=== PATIENT | male | born 1935 | race Caucasian/White ===

== ENCOUNTER 2016-12-10 09:46 | Outpatient (CLI) ==
--- NOTE | 2016-12-10 10:37 | CT ---
EXAM: CT BRAIN HISTORY: Dizziness, hypertension TECHNIQUE: CT brain without intravenous contrast. 5-mm axial sections with Reformations. COMPARISON: None FINDINGS: There is mild generalized atrophy. Moderate periventricular and deep white matter low attenuation i s suggestive of relatively severe chronic microvascular ischemic change. A few nodular similar low attenuation foci are seen also in the deep supratentorial white matter bilaterally which may represe nt further asymmetric extension of the chronic microvascular disease. With no comparisons, it would be difficult to exclude small focal subacute infarctions or foci of edema from other pathology incl uding metastatic disease although this is less likely. There is no intracranial hemorrhage, acute v entriculomegaly, noticeable mass effect or subdural fluid collection. Basal cisterns are patent. V isualized paranasal sinuses are clear. Mastoid air cells are aerated. Cranium is intact. IMPRESSION: No definite acute intracranial process. Complex deep white matter findings as described above. Cor relate clinically. If indicated, correlation with MRI can be made.
--- NOTE | 2016-12-10 11:42 | US ---
EXAM: Bilateral carotid artery Doppler History: Dizziness and hypertension. Technique: Multiple sonographic images through the bilateral internal carotid arteries were obtaine d. Color duplex Doppler was used to interrogate vascular flow. Findings: The right ICA peak systolic velocity is within normal limits measuring 0.8 meters per second. The r ight ICA/cca PSV ratio is normal at 1.6. The right vertebral artery is patent and demonstrates ante grade flow. Mild to moderate plaque buildup seen within the right internal carotid artery. The left ICA peak systolic velocity is within normal limits measuring 1.1 meters per second. The le ft ICA/cca PSV ratio is upper limits of normal at 2.0. The left vertebral artery is patent and demo nstrates antegrade flow. Mild to moderate plaque buildup seen within the left internal carotid ghanshyam ry Impression: No significant hemodynamic stenosis of the bilateral internal carotid arteries.
== END 2016-12-10 09:47 | disposition home or self-care (01) ==
LOC: RAD 09:46
PROVIDERS: ATTEND Emergency Medicine
DX: R42 Dizziness and giddiness (principal); I10 Essential (primary) hypertension

== ENCOUNTER 2017-04-14 14:39 | Inpatient (IN) ==
[2017-04-14] MEDS ORDERED: NITROSTAT SL PRN (15:10)
[2017-04-14] MEDS ORDERED: ATROPINE SULFATE PFS IVP PRN (15:10)
[2017-04-14] MEDS ORDERED: MORPHINE 4 MG/ML SYRINGE IVP PRN (15:10)
[2017-04-14] MEDS ORDERED: VISTARIL INJ IM PRN (15:10)
[2017-04-14] MEDS ORDERED: DECADRON 4 MG/ML SDV IM STA (15:17)
[2017-04-14] MEDS ORDERED: TYLENOL PO STA (15:18)
[2017-04-14] MEDS ORDERED: VANCOMYCIN 1 GM in SODIUM CHLORIDE 250 ML IV SCH (15:30)
[2017-04-14 16:03] LABS: BASOPHILS # (AUTO) 0.1 K/uL (0-0.2); BASOPHILS % (AUTO) 0.3 % (0.0-3.0); HEMATOCRIT 45.1 % (42.0-52.0); HEMOGLOBIN 15.6 g/dl (14.0-18.0); IMMATURE GRANULOCYTE % (AUTO) 0.6 % (0.0-5.0); LYMPHOCYTES # (AUTO) 0.9 K/uL (0.60-3.4); LYMPHOCYTES % (AUTO) 5.1 (10.0-50.0); MEAN CORPUSCULAR HEMOGLOBIN 32.8 pg (27.0-31.0); MEAN CORPUSCULAR HGB CONC 34.6 (31.8-35.4); MEAN CORPUSCULAR VOLUME 94.7 fl (80.0-94.0); MONOCYTES # (AUTO) 1.2 K/uL (0.4-2.0); MONOCYTES % (AUTO) 6.8 (0-10); NEUTROPHILS # (AUTO) 14.8 K/ul (2.0-6.9); NEUTROPHILS % (AUTO) 87.2; PLATELET COUNT 207 10^3/uL (140-440); RED BLOOD COUNT 4.76 10^6/ul (4.70-6.10); WHITE BLOOD COUNT 16.96 K/ul (4.2-10.2)
[2017-04-14] MEDS: DEXTROSE 5%-1/2NS IV SOLUTION 1,000 ML IV SCH (16:07)
[2017-04-14] MEDS: ROCEPHIN 1 GM in SODIUM CHLORIDE 50 ML IV SCH (16:08)
--- NOTE | 2017-04-14 16:31 | DI ---
EXAM: Chest one view, frontal view only. HISTORY: Cough, chest congestion. COMPARISON: 09/17/2014. FINDINGS: The heart size is normal. Aortic atherosclerotic calcifications are present. There is n o pulmonary vascular congestion. Calcified granulomatous changes noted. The lungs are clear. No p leural effusion or pneumothorax is seen. No acute osseous abnormality is identified. Since the victor hugo or study, there has been no significant interval change. IMPRESSION: No acute cardiopulmonary process.
[2017-04-14 17:04] LABS: ALBUMIN 3.7 g/dL (3.4-5.0); ALBUMIN/GLOBULIN RATIO 1.06; ANION GAP 15.3; BILIRUBIN,TOTAL 0.96 mg/dL (0.00-1.20); BUN/CREATININE RATIO 13.95; CALCIUM 9.5 mg/dL (8.2-10.2); CREATININE 1.72 mg/dL (0.60-1.10); POTASSIUM 4.3 mmol/L (3.5-5.1); TOTAL PROTEIN 7.2 g/dL (5.8-8.1)
[2017-04-14] MEDS: ZITHROMAX 500 MG in SODIUM CHLORIDE 250 ML IV SCH (17:19)
[2017-04-14 18:47] VITALS: BMI 23.8
[2017-04-14 19:02] LABS: BILIRUBIN,URINE Negative (NEGATIVE); KETONES,URINE Negative (NEGATIVE); LEUKOCYTE ESTERASE ,URINE Negative (NEGATIVE); NITRITE,URINE Negative (NEGATIVE); PROTEIN,URINE Negative (NEGATIVE); URINE, BLOOD Trace-lysed (NEGATIVE)
[2017-04-14 20:08] LABS: ADD URINE MICROSCOPIC YES
[2017-04-14] MEDS ORDERED: ZOCOR ONE (20:33)
[2017-04-14] MEDS ORDERED: ASPIRIN EC PO SCH (21:00)
[2017-04-14] MEDS ORDERED: LUMIGAN OP SCH (21:00)
[2017-04-14] MEDS ORDERED: NON-FORMULARY MEDICATION (Simvastatin [Zocor] 20 MG) PO SCH ×22 (21:00)
[2017-04-14] MEDS ORDERED: ALTACE ONE (21:07)
[2017-04-14] MEDS: RAMIPRIL 10 MG PO SCH (21:11)
[2017-04-15 04:30] LABS: BASOPHILS % (AUTO) 0.2 % (0.0-3.0); HEMATOCRIT 39.6 % (42.0-52.0); HEMOGLOBIN 13.6 g/dl (14.0-18.0); IMMATURE GRANULOCYTE % (AUTO) 0.5 % (0.0-5.0); LYMPHOCYTES % (AUTO) 7.2 (10.0-50.0); MEAN CORPUSCULAR HEMOGLOBIN 32.3 pg (27.0-31.0); MEAN CORPUSCULAR HGB CONC 34.3 (31.8-35.4); MEAN CORPUSCULAR VOLUME 94.1 fl (80.0-94.0); MONOCYTES # (AUTO) 1.1 K/uL (0.4-2.0); MONOCYTES % (AUTO) 7.8 (0-10); NEUTROPHILS # (AUTO) 12.1 K/ul (2.0-6.9); NEUTROPHILS % (AUTO) 84.3; PLATELET COUNT 174 10^3/uL (140-440); RED BLOOD COUNT 4.21 10^6/ul (4.70-6.10); WHITE BLOOD COUNT 14.32 K/ul (4.2-10.2)
[2017-04-15 04:50] LABS: ALBUMIN 2.9 g/dL (3.4-5.0); ALBUMIN/GLOBULIN RATIO 1.04; ANION GAP 15.5; BILIRUBIN,TOTAL 0.82 mg/dL (0.00-1.20); BUN/CREATININE RATIO 18.3; CALCIUM 8.9 mg/dL (8.2-10.2); CREATININE 1.42 mg/dL (0.60-1.10); POTASSIUM 4.5 mmol/L (3.5-5.1); TOTAL PROTEIN 5.7 g/dL (5.8-8.1)
[2017-04-15] MEDS ORDERED: ASPIRIN EC PO SCH ×2 (08:00→21:00)
[2017-04-15] MEDS: OMEGA-3 FISH OIL PO SCH (08:46)
[2017-04-15] MEDS: LUMIGAN OP SCH ×2 (08:46→20:50)
[2017-04-15] MEDS: PROTONIX PO SCH (08:46)
[2017-04-15] MEDS: RAMIPRIL 10 MG PO SCH (08:46)
[2017-04-15] MEDS: ZOCOR PO SCH (08:48)
[2017-04-15] MEDS: ROCEPHIN 1 GM in SODIUM CHLORIDE 50 ML IV SCH (08:49)
[2017-04-15] MEDS ORDERED: NON-FORMULARY MEDICATION (Omega-3 Acid Ethyl Esters [Lovaza] 1 GM) PO SCH ×22 (09:00)
[2017-04-15] MEDS ORDERED: ALTACE PO SCH (09:00)
[2017-04-15] MEDS ORDERED: NON-FORMULARY MEDICATION (Esomeprazole Magnesium [Nexium] 40 MG) PO SCH ×22 (09:00)
[2017-04-15] MEDS: ZITHROMAX 500 MG in SODIUM CHLORIDE 250 ML IV SCH (09:49)
--- NOTE | 2017-04-15 11:04 | HP ---
DATE OF SERVICE: 04/14/17 HISTORY OF PRESENT ILLNESS: This is an 82-year-old male states he started feeling bad this morning. Temperature 101.5. He states he had chills, fever and was nauseated. The patient noticed back of his right hand had streaks to elbow; tender and may have had a cat scratch three days ago. REVIEW OF SYSTEMS: CONSTITUTIONAL: Fever and fatigue. HEENT: No sinus drainage, no sore throat. RESPIRATORY: No cough, no congestion. CARDIOVASCULAR: No atypical chest pain for coronary artery disease. No angina , CHF symptoms, palpitations or shortness of breath. GASTROINTESTINAL: No melena or abdominal pain. No GERD. GENITOURINARY: No hematuria, no prostatism, no polyuria. CANVAS SHOP LABORER: No blackout, no dizziness, no headache, no double vision. MUSCULOSKELETAL: Osteoarthritis pain. ENDOCRINE: No weight loss, no weight gain. SKIN: Redness right hand. PSYCHIATRIC: Not anxious, no depression, no suicidal thoughts, no homicidal thoughts. PAST MEDICAL HISTORY: 1. Hypertension 2. Dyslipidemia 3. Chronic kidney disease Stage 3 4. Fatty liver 5. Cervical muscle spasm 6. Dizziness SOCIAL HISTORY: The patient is with one child. Tobacco - smoked for 20 years, 3 packs per day, quit 35 years ago. No alcohol use. MEDICATIONS: (HOME) 1. Aspirin 81 mg p.o. daily 2. Simvastatin (Zocor) 20 mg p.o. daily 3. Ramipril 10 mg p.o. daily 4. [place]-3 Acid Ethyl Esters (Lovaza) 1 gm p.o. daily 5. Esomeprazole (Nexium) 40 mg p.o. daily 6. Bimatoprost Opth (Lumigan) one drop OP daily PHYSICAL EXAMINATION: V/S: Pulse 93, BP 140/80, temperature 101.5, 02 sat 100%. Height 5'11, BMI 24.3 , weight 174.4. GENERAL APPEARANCE: Oriented times three. HEENT: Normal. NECK: No JVP, no bruits. RESPIRATORY: Lungs are clear with decreased breath sounds. CARDIOVASCULAR: S1, S2, no S3, no murmurs. No cyanosis, clubbing. No ascites. GI/ABDOMEN: No tenderness. Bowel sounds are active. EXTREMITIES: Dorsal aspect of right hand, red, swollen and tender with red streaking up to elbow. Pulses +1, equal. CANVAS SHOP LABORER: Deep tendon reflexes, sensory, motor and gait all normal. RECTAL/PROSTATE: Prostate 8/ (0.7). Colonoscopy - Dr. Izaguirre, 2004 ASSESSMENT: 1. CELLULITIS RIGHT HAND WITH EXTENSION TO RIGHT ELBOW 2. FEVER 3. DIZZINESS 4. HYPERTENSION 5. DYSLIPIDEMIA 6. CKD, STAGE 3 5. FATTY LIVER 6. CERVICAL MUSCLE SPASM PLAN: 1. Admit with Bartonella hens loc titer 2. Routine telemetry orders 3. Blood culture times two 4. CBC/CMP STAT and daily 5. Continue home medications 6. Rocephin IV 1 gm now and q.24hourly 7. Zithromax 500 mg IV ASA daily times three days 8. Vancomycin 1 gm times one dose 9. Continue all home medications 10. 1/2 cc Decadron IV 11. 1000 cc's D5 1/2 NS q.12hr 12. Blood culture times two 13. Two Tylenol 50 mg p.o. now TIME SPENT: More than 70 minutes. MTDD
--- NOTE | 2017-04-15 12:44 | PCM.PROG ---
Attending Provider: ATTENDING PROVIDER: Dr. LIVE POWELL DATE OF SERVICE: 04/15/17 SUBJECTIVE: This 82 year old WHITE/ M was hospitalized 04/14/17. The patient is seen with Narcisa, Nurse Practitioner. The patient is sitting on the side of the bed, No fever since yesterday. The right hand swelling has slightly improved. REVIEW OF SYSTEMS: CONSTITUTIONAL: Fatigue. No night sweats. No fever or chills. HEENT: Eyes: No visual changes. No eye pain. No eye discharge. ENT: No runny nose. No epistaxis. No sinus pain. No odynophagia. No congestion. RESPIRATORY: No cough, no congestion. No hemoptysis. CARDIOVASCULAR: No angina symptoms. No CHF symptoms. No atypical chest pain for CAD. No palpitations. No shortness of breath. GASTROINTESTINAL: No abdominal pain. No nausea or vomiting. No diarrhea or constipation. No hematemesis. No hematochezia. GENITOURINARY: No urgency. No frequency. No dysuria. No hematuria. No obstructive symptoms. No discharge. No pain. No significant abnormal bleeding. MUSCULOSKELETAL: Right hand swelling and redness to the elbow. NEUROLOGICAL: Awake, alert, oriented to time, place and person. No headache. No neck pain. No syncope. No seizures. No dizziness. PSYCHIATRIC: Not anxious. No depression. No suicidal thoughts. No homicidal thoughts. SKIN: Right hand redness extending to elbow, improved. ENDOCRINE: No unexplained weight loss. No weight gain. HEMATOLOGIC/LYMPHATIC: No anemia. No purpura. No petechiae. No prolonged or excessive bleeding. No palpable lymph nodes. PHYSICAL EXAMINATION: GENERAL: The patient is awake, alert and oriented, sitting on the side of the bed in no distress. VITAL SIGNS: Temperature 96.7 F, Pulse 56, Respiratory Rate 15, BP 120/66, Pulse Ox 94% HEENT: Head normocephalic, atraumatic. Eyes: Extraocular muscles are intact. Pupils are equal, round and reactive to light and accommodation. Ears: No lesions. Nose appeared normal. Throat: No exudate or erythema. NECK: Supple. No JVD, no carotid bruit. No lymphadenopathy or thyromegaly. LUNGS: Diminished breath sounds bilaterally equal and clear to auscultation. Percussion note normal. Chest symmetrical. HEART: S1, S2, no S3. No murmurs. No cyanosis or clubbing. No ascites. Pulses: Dorsalis pedis and posterior tibial pulses +1 to +2 both sides. ABDOMEN: Soft. Non-tender. Bowel sounds active. No CVA tenderness. No mass felt. EXTREMITIES: Skin redness with minor swelling and tenderness dorsal aspect of right hand with improved redness extending to elbow. Full range of motion of all extremities, equal. NEUROLOGIC: No focal deficit. Cranial nerves II through XII are grossly intact. No headache, no double vision or headache. SKIN: Not dry. Intact. Turgor-normal. LYMPHATIC: No palpable lymph nodes/no lymphedema. MUSCULOSKELETAL: Normal joints with no swelling. Muscle tone is normal. LAB REVIEW: 04/15/17 04:20 04/15/17 04:20 04/15/17 04:20: WBC 14.32 H, RBC 4.21 L, Hgb 13.6 L, Hct 39.6 L, MCV 94.1 H, MCH 32.3 H, MCHC 34.3, RDW Coeff of Vanita 13.3, Plt Count 174, Immature Gran % ( Auto) 0.5, Neut % (Auto) 84.3, Lymph % (Auto) 7.2 L, [place] % (Auto) 7.8, Eos % ( Auto) 0.0, Baso % (Auto) 0.2, Immature Gran # (Auto) 0.1, Neut # 12.1 H, Lymph # 1.0, [place] # 1.1, Eos # 0.0, Baso # 0.0, Sodium 138, Potassium 4.5, Chloride 109 H, Carbon Dioxide 18 L, Anion Gap 15.5, BUN 26 H, Creatinine 1.42 H, Estimated GFR (MDRD) 48.00, BUN/Creatinine Ratio 18.30, Glucose 150 H, Calcium 8.9, Total Bilirubin 0.82, AST 10 L, ALT 11 L, Alkaline Phosphatase 67, Total Protein 5.7 L, Albumin 2.9 L, Globulin 2.8, Albumin/Globulin Ratio 1.04 04/14/17 18:35: Urine Color Yellow, Urine Clarity Clear, Urine pH 6.0, Ur Specific [place] 1.015, Urine Protein Negative, Urine Glucose (UA) Trace, Urine Ketones Negative, Urine Blood Trace-lysed, Urine Nitrite Negative, Urine Bilirubin Negative, Urine Urobilinogen 1.0, Ur Leukocyte Esterase Negative, Urine Microscopic RBC 2-5, Ur Squamous Epith Cells 2-5 04/14/17 15:30: WBC 16.96 H, RBC 4.76, Hgb 15.6, Hct 45.1, MCV 94.7 H, MCH 32.8 H, MCHC 34.6, RDW Coeff of Vanita 13.2, Plt Count 207, Immature Gran % (Auto) 0.6, Neut % (Auto) 87.2, Lymph % (Auto) 5.1 L, [place] % (Auto) 6.8, Eos % (Auto) 0.0, Baso % (Auto) 0.3, Immature Gran # (Auto) 0.1, Neut # 14.8 H, Lymph # 0.9, [place] # 1.2, Eos # 0.0, Baso # 0.1, Sodium 138, Potassium 4.3, Chloride 104, Carbon Dioxide 23, Anion Gap 15.3, BUN 24 H, Creatinine 1.72 H, Estimated GFR (MDRD) 38.00, BUN/Creatinine Ratio 13.95, Glucose 120 H, Calcium 9.5, Total Bilirubin 0.96, AST 15, ALT 14, Alkaline Phosphatase 86, Total Protein 7.2, Albumin 3.7, Globulin 3.5, Albumin/Globulin Ratio 1.06 ASSESSMENT: 1. Cellulitis, right hand. 2. Fever which has resolved. PLAN: 1. Continue Rocephin IV 2. Zithromax IV 3. Cat scratch titer is pending Plan and coordination of the patient's care discussed in the presence of Screen Machine Operator and nurse. CONDITION: Stable SCRIBED BY: Artis MOORE scribed while in presence of service performed by Dr. LIVE POWELL/NARCISA MARTIN APRN on 04/15/17 ([id number])
[2017-04-15] MEDS: DEXTROSE 5%-1/2NS IV SOLUTION 1,000 ML IV SCH (13:19)
[2017-04-15] MEDS ORDERED: LUMIGAN OP SCH (21:00)
[2017-04-16 04:42] LABS: BASOPHILS # (AUTO) 0.1 K/uL (0-0.2); BASOPHILS % (AUTO) 0.4 % (0.0-3.0); EOSINOPHILS # (AUTO) 0.2 K/ul (0.0-0.7); EOSINOPHILS % (AUTO) 1.4 % (0.0-7.0); HEMATOCRIT 38.6 % (42.0-52.0); HEMOGLOBIN 13.3 g/dl (14.0-18.0); IMMATURE GRANULOCYTE % (AUTO) 0.5 % (0.0-5.0); LYMPHOCYTES # (AUTO) 2.8 K/uL (0.60-3.4); LYMPHOCYTES % (AUTO) 25.3 (10.0-50.0); MEAN CORPUSCULAR HEMOGLOBIN 32.5 pg (27.0-31.0); MEAN CORPUSCULAR HGB CONC 34.5 (31.8-35.4); MEAN CORPUSCULAR VOLUME 94.4 fl (80.0-94.0); MONOCYTES % (AUTO) 8.9 (0-10); NEUTROPHILS # (AUTO) 7.1 K/ul (2.0-6.9); NEUTROPHILS % (AUTO) 63.5; PLATELET COUNT 175 10^3/uL (140-440); RED BLOOD COUNT 4.09 10^6/ul (4.70-6.10); WHITE BLOOD COUNT 11.15 K/ul (4.2-10.2)
[2017-04-16 05:03] LABS: ALBUMIN 2.7 g/dL (3.4-5.0); ANION GAP 14.1; BILIRUBIN,TOTAL 0.32 mg/dL (0.00-1.20); BUN/CREATININE RATIO 16.66; CALCIUM 8.8 mg/dL (8.2-10.2); CREATININE 1.56 mg/dL (0.60-1.10); POTASSIUM 4.1 mmol/L (3.5-5.1); TOTAL PROTEIN 5.4 g/dL (5.8-8.1)
[2017-04-16] MEDS: PROTONIX PO SCH (05:36)
[2017-04-16] MEDS: ZOCOR PO SCH (08:18)
[2017-04-16] MEDS: OMEGA-3 FISH OIL PO SCH (08:18)
[2017-04-16] MEDS: ROCEPHIN 1 GM in SODIUM CHLORIDE 50 ML IV SCH (08:18)
[2017-04-16] MEDS ORDERED: RAMIPRIL 10 MG PO SCH (09:00)
[2017-04-16] MEDS: ZITHROMAX 500 MG in SODIUM CHLORIDE 250 ML IV SCH (09:36)
--- NOTE | 2017-04-16 09:51 | PN ---
DATE OF SERVICE: 04/15/17 SUBJECTIVE: The patient was seen with Nurse Practitioner. The patient is an 82 year old white male hospitalized with cellulitis of the right hand with streaks going up to his elbow. The patient's condition has improved remarkably. PHYSICAL EXAMINATION: GENERAL: The patient is VITAL SIGNS: He is afebrile yesterday. Yesterday he was running fever of 101. HEENT: Head normocephalic, atraumatic. Eyes: Extraocular muscles are intact. Pupils are equal, round and reactive to light and accommodation. Ears: No lesions. Nose appeared normal. Throat: No exudate or erythema. NECK: Supple. No JVD, no carotid bruit. No lymphadenopathy or thyromegaly. LUNGS: Clear to auscultation. Percussion note normal. Chest symmetrical. HEART: S1, S2, no S3. No murmurs. No cyanosis or clubbing. No ascites. Pulses: Dorsalis pedis and posterior tibial pulses +1 to +2 both sides. ABDOMEN: Soft. Nontender. Bowel sounds active. No CVA tenderness. No mass felt. EXTREMITIES: No edema. Full range of motion of all extremities, equal. The streaks are practically gone, very faint and could hardly could see them. He is feeling better. NEUROLOGIC: No focal deficit. Cranial nerves II through XII are grossly intact. No headache, no double vision or headache. SKIN: Not dry. Intact. Turgor - normal. LYMPHATIC: No palpable lymph nodes/no lymphedema. MUSCULOSKELETAL: Normal joints with no swelling. Muscle tone is normal. LABS: WBC 14,000 yesterday with hgb of 13. PLAN: 1. Continue Zithromax and Rocephin CONDITION: Stable TIME SPENT: More than 30 minutes. Plan and coordination of the patient's care discussed in the presence of nurse. MATT
--- NOTE | 2017-04-16 10:03 | DS ---
DATE OF SERVICE: 04/16/2017 FINAL DIAGNOSIS: 1. Cellulitis of right upper extremity from cat scratch with streaks going to the elbow. 2. Hypertension. 3. Chronic kidney disease. 4. Dyslipidemia. 5. GERD. Discharge V/S: Temperature 97.4, pulse 57, respiratory rate 20, BP 151/74, pulse ox 92. DISCHARGE INSTRUCTIONS: Followup appointment on 04/20/17 at 11:[address] Najera. MEDICATIONS AT DISCHARGE: 1. Aspirin 81 mg p.o. daily 2. Simvastatin (Zocor) 20 mg p.o. daily 3. Ramipril 10 mg p.o. daily 4. [place]-3 Acid 1 gm p.o. daily 5. Esomeprazole (Nexium) 40 mg p.o. daily 6. Bimatoprost (Lumigan) one drop OP daily 7. MiraLax 17 mg p.o. daily NEW PRESCRIPTIONS: Keflex 500 mg t.i.d. for five days DIET INSTRUCTIONS: Reguilar as tolerated. ACTIVITY: Resume as tolerated. SMOKING: N/A DISEASE SPECIFIC EDUCATION: Antibiotic Cellulitis Appointment HOSPITAL COURSE: The patient is an 82-year-old male hospitalized with cellulitis of the right upper extremity with streaks going to elbow from right dorsum of hand. The patient had a cat scratch. The patient was treated with Rocephin and Zithromax. The patient's condition has improved remarkably within 24 hours. At the time of discharge, the patient is afebrile with no streaks. Inflammation on right dorsum of hand has practically subsided with some discoloration. The patient is discharged on antibiotics to be followed as an outpatient. LAB DATA: 04/16/17 04:15: WBC 11.15 H, RBC 4.09 L, Hgb 13.3 L, Hct 38.6 L, MCV 94.4 H, MCH 32.5 H, MCHC 34.5, RDW Coeff of Vanita 13.5, Plt Count 175, Immature Gran % ( Auto) 0.5, Neut % (Auto) 63.5, Lymph % (Auto) 25.3, [place] % (Auto) 8.9, Eos % ( Auto) 1.4, Baso % (Auto) 0.4, Immature Gran # (Auto) 0.1, Neut # 7.1 H, Lymph # 2.8, [place] # 1.0, Eos # 0.2, Baso # 0.1, Sodium 140, Potassium 4.1, Chloride 109 H, Carbon Dioxide 21 L, Anion Gap 14.1, BUN 26 H, Creatinine 1.56 H, Estimated GFR (MDRD) 43.00, BUN/Creatinine Ratio 16.66, Glucose 112, Calcium 8.8, Total Bilirubin 0.32, AST 11 L, ALT 10 L, Alkaline Phosphatase 93 D, Total Protein 5.4 L, Albumin 2.7 L, Globulin 2.7, Albumin/Globulin Ratio 1.00 CONDITION: Stable TIME SPENT: More than 60 minutes. MTDD
[2017-04-16 10:41] VITALS: BP 151/74; TEMP 97.4
--- NOTE | 2017-04-16 10:51 | PCM.PROG ---
Attending Provider: ATTENDING PROVIDER: Dr. LIVE POWELL DATE OF SERVICE: 04/16/17 SUBJECTIVE: This 82 year old WHITE/ M was hospitalized 04/14/17. The patient is hospitalized with cellulitis of the right hand with streaks going to the elbow. The patient's streaks have completely resolved. The right dorsum of hand is a lot better, practically no swelling but still has mild to moderate discoloration. REVIEW OF SYSTEMS: CONSTITUTIONAL: No night sweats. No fatigue, malaise, lethargy. No fever or chills. HEENT: Eyes: No visual changes. No eye pain. No eye discharge. ENT: No runny nose. No epistaxis. No sinus pain. No odynophagia. No congestion. RESPIRATORY: No cough, no congestion. No hemoptysis. CARDIOVASCULAR: No angina symptoms. No CHF symptoms. No atypical chest pain for CAD. No palpitations. No shortness of breath. GASTROINTESTINAL: No abdominal pain. No nausea or vomiting. No diarrhea or constipation. No hematemesis. No hematochezia. GENITOURINARY: No urgency. No frequency. No dysuria. No hematuria. No obstructive symptoms. No discharge. No pain. No significant abnormal bleeding. MUSCULOSKELETAL: No musculoskeletal pain; no joint swelling. NEUROLOGICAL: Awake, alert, oriented to time, place and person. No headache. No neck pain. No syncope. No seizures. No dizziness. PSYCHIATRIC: Not anxious. No depression. No suicidal thoughts. No homicidal thoughts. SKIN: No rash. No lesions. No wounds. ENDOCRINE: No unexplained weight loss. No weight gain. HEMATOLOGIC/LYMPHATIC: No anemia. No purpura. No petechiae. No prolonged or excessive bleeding. No palpable lymph nodes. PHYSICAL EXAMINATION: GENERAL: The patient is awake, alert and oriented, sitting up in bed in no distress. VITAL SIGNS: Temperature 97.8 F, Pulse 52, Respiratory Rate 16, BP 131/72, Pulse Ox 97% HEENT: Head normocephalic, atraumatic. Eyes: Extraocular muscles are intact. Pupils are equal, round and reactive to light and accommodation. Ears: No lesions. Nose appeared normal. Throat: No exudate or erythema. NECK: Supple. No JVD, no carotid bruit. No lymphadenopathy or thyromegaly. LUNGS: Clear to auscultation. Percussion note normal. Chest symmetrical. HEART: S1, S2, no S3. No murmurs. No cyanosis or clubbing. No ascites. Pulses: Dorsalis pedis and posterior tibial pulses +1 to +2 both sides. ABDOMEN: Soft. Non-tender. Bowel sounds active. No CVA tenderness. No mass felt. EXTREMITIES: Right forearm is normal. The dorsum of right hand has very little swelling. No signs of infection or inflammation. No edema. Full range of motion of all extremities, equal. NEUROLOGIC: No focal deficit. Cranial nerves II through XII are grossly intact. No headache, no double vision or headache. SKIN: Not dry. Intact. Turgor-normal. LYMPHATIC: No palpable lymph nodes/no lymphedema. MUSCULOSKELETAL: Normal joints with no swelling. Muscle tone is normal. LAB REVIEW: 04/16/17 04:15 04/16/17 04:15 04/16/17 04:15: WBC 11.15 H, RBC 4.09 L, Hgb 13.3 L, Hct 38.6 L, MCV 94.4 H, MCH 32.5 H, MCHC 34.5, RDW Coeff of Vanita 13.5, Plt Count 175, Immature Gran % ( Auto) 0.5, Neut % (Auto) 63.5, Lymph % (Auto) 25.3, [place] % (Auto) 8.9, Eos % ( Auto) 1.4, Baso % (Auto) 0.4, Immature Gran # (Auto) 0.1, Neut # 7.1 H, Lymph # 2.8, [place] # 1.0, Eos # 0.2, Baso # 0.1, Sodium 140, Potassium 4.1, Chloride 109 H, Carbon Dioxide 21 L, Anion Gap 14.1, BUN 26 H, Creatinine 1.56 H, Estimated GFR (MDRD) 43.00, BUN/Creatinine Ratio 16.66, Glucose 112, Calcium 8.8, Total Bilirubin 0.32, AST 11 L, ALT 10 L, Alkaline Phosphatase 93 D, Total Protein 5.4 L, Albumin 2.7 L, Globulin 2.7, Albumin/Globulin Ratio 1.00 ASSESSMENT: 1. Right hand cellulitis with streaks going to elbow from cat scratch. PLAN: 1. Finish Zithromax 500 mg three times a day 2. Keflex 500 mg t.i.d. for 5 days 3. Will see the patient back in the office on Wednesday 4. Discharge home today. 5. If any deterioration of the right upper extremity in the way of swelling, fever or chills, the patient is advised to go to ER or contact Dr. Powell. Plan and coordination of the patient's care discussed in the presence of Paste Mixing Supervisor and nurse. CONDITION: Stable SCRIBED BY: CLAIR WILD Outside Repairer Special scribed while in presence of service performed by Dr. LIVE POWELL on 04/16/17 ([id number])
[2017-04-16] MEDS ORDERED: MIRALAX PO STA (11:40)
--- NOTE | 2017-04-16 12:21 | CM.DICTOOL ---
ADMISSION: 04/14/17 14:39 DISCHARGE: April 16, 2017 DATE OF SERVICE: 04/16/17 FINAL DIAGNOSIS Cellulitis, right hand with extension to elbow Fever Hypertension Dyslipidemia CKD, stage 3 Fatty Liver Cervical muscle spasm Dizziness LAST VITALS Temp Pulse Resp BP Pulse Ox 97.4 F L 57 L 20 151/74 H 92 L 04/16/17 10:00 04/16/17 10:00 04/16/17 10:00 04/16/17 10:00 04/16/17 10:00 ACTIVE HOME MEDICATIONS Aspirin (Aspirin Ec) 81 mg PO BEDTIME [facility] Last Admin: 04/15/17 20:50 Dose: 81 mg Bimatoprost (Lumigan) 1 drop OP BEDTIME [facility] Last Admin: 04/15/17 20:51 Dose: 1 drop Fish Oil ([place]-3 Fish Oil) 1,000 mg PO DAILY [facility] Last Admin: 04/16/17 08:18 Dose: 1,000 mg Non-Formulary Medication (Ramipril [Ramipril]) 10 mg PO DAILY [facility] Last Admin: 04/16/17 08:18 Dose: 10 mg Pantoprazole Sodium (Protonix) 40 mg PO QDAC [facility] Last Admin: 04/16/17 05:36 Dose: 40 mg Simvastatin (Zocor) 20 mg PO DAILY [facility] Last Admin: 04/16/17 08:18 Dose: 20 mg ALLERGIES No Known Allergies Allergy (Unverified 03/13/14 13:02) NEW PRESCRIPTIONS: kEFLEX 500 MG TID FOR 5 DAYS SMOKING: Not applicable DISEASE SPECIFIC EDUCATION: Antibiotic Cellulitis Appointment LAB REVIEW: 04/16/17 04:15 04/16/17 04:15 04/16/17 04:15: WBC 11.15 H, RBC 4.09 L, Hgb 13.3 L, Hct 38.6 L, MCV 94.4 H, MCH 32.5 H, MCHC 34.5, RDW Coeff of Vanita 13.5, Plt Count 175, Immature Gran % ( Auto) 0.5, Neut % (Auto) 63.5, Lymph % (Auto) 25.3, [place] % (Auto) 8.9, Eos % ( Auto) 1.4, Baso % (Auto) 0.4, Immature Gran # (Auto) 0.1, Neut # 7.1 H, Lymph # 2.8, [place] # 1.0, Eos # 0.2, Baso # 0.1, Sodium 140, Potassium 4.1, Chloride 109 H, Carbon Dioxide 21 L, Anion Gap 14.1, BUN 26 H, Creatinine 1.56 H, Estimated GFR (MDRD) 43.00, BUN/Creatinine Ratio 16.66, Glucose 112, Calcium 8.8, Total Bilirubin 0.32, AST 11 L, ALT 10 L, Alkaline Phosphatase 93 D, Total Protein 5.4 L, Albumin 2.7 L, Globulin 2.7, Albumin/Globulin Ratio 1.00 PLAN: Discharge home Diet: Regular as tolerated Activity: Resume as tolerated Continue medications as listed on nursing discharge information sheet An appointment is scheduled on April 20 at 11:[address] Najera Mr. Acuna is alert and oriented x 3. He is independent with ADL'S and is ambulatory without use of assistive device. Meal intakes are good at 100%. No nausea or abdominal pain reported. He continues to have slight redness and swelling to the dorsum of the right hand. No drainage, no open wounds noted. No red streaking to the forearm. Full range of motion noted to the fingers, right hand and wrist. Lowell Najera MD
--- NOTE | 2017-04-19 10:38 | PN ---
04/14/17: Level 5 04/15/17: Intermediate 04/16/17: D as in discharge MTDD
== END 2017-04-16 12:50 | disposition home or self-care (01) | DRG 603 ==
LOC: MEDSURG A 14:39
PROVIDERS: ADMIT Internal Medicine; ATTEND Internal Medicine
DX: L03.113 Cellulitis of right upper limb (principal); I10 Essential (primary) hypertension; I12.9 Hypertensive chronic kidney disease with stage 1 through stage 4 chronic kidney disease, or unspecified chronic kidney disease; N18.3 Chronic kidney disease, stage 3 (moderate); R50.9 Fever, unspecified; E78.5 Hyperlipidemia, unspecified; K21.9 Gastro-esophageal reflux disease without esophagitis; W55.03XA Scratched by cat, initial encounter; Z87.891 Personal history of nicotine dependence; Z79.899 Other long term (current) drug therapy
CPT/HCPCS: 36415; 80053; 81001; 85025; 87040; 87471; 93005; 93010

== ENCOUNTER 2018-10-01 15:41 | Emergency (ER) ==
[2018-10-01 15:45] VITALS: BP 176/90; TEMP 98; BMI 24.4
[2018-10-01] MEDS ORDERED: DECADRON 4 MG/ML SDV IM STA (17:38)
--- NOTE | 2018-10-01 18:07 | ED.PDOC ---
General ED Provider: Dr. KALYAN JEFFERY-ER Chief Complaint: Foot Pain/Injury Stated Complaint: my toe hurts and its red Time Seen by Physician: 15:45 Mode of Arrival: Walk-In Information Source: Patient Exam Limitations: No limitations Primary Care Provider: LIVE GRIJALVA Nursing and Triage Documentation Reviewed and Agree: Yes Does patient meet sepsis criteria?: No System Inflammatory Response Syndrome: Not Applicable Sepsis Protocol: For patient's 13 years and over: Temp is 96.8 and below OR 101 and greater Pulse >90 BPM Resp >20/minute Acutely Altered Mental Status Are patient's symptoms suggestive of a new infection, such as: -Pneumonia -Skin, Soft Tissue -Endocarditis -UTI -Bone, Joint Infection -Implantable Device -Acute Abdominal Infection -Wound Infection -Meningitis -Blood Stream Catheter Infection -Unknown Musculoskeletal Complaint Exam - Ankle/Foot Complaint/Exam Location of Injury: Reports: Right, Toe #1 Mechanism of Injury: Reports: No known trauma Onset/Duration: 3 days Symptoms Are: Reports: Still present Onset of Pain: Reports: Immediate Initial Severity: Mild Current Severity: Mild Location: Reports: Discrete Character: Reports: Dull, Aching Aggravating: Reports: Movement Able to Bear Weight: Yes Associated Signs and Symptoms: Reports: Swelling, Redness Limited Range of Motion: Present: Inversion, Eversion, Dorsiflexion, Plantarflexion Differential Diagnosis: Gout Review of Systems - Review Of Systems Constitutional: Reports: No symptoms Eyes: Reports: No symptoms Ears, Nose, Mouth, Throat: Reports: No symptoms Respiratory: Reports: No symptoms Cardiac: Reports: No symptoms GI: Reports: No symptoms : Reports: No symptoms Musculoskeletal: Reports: Joint pain, Joint swelling Skin: Reports: No symptoms Neurological: Reports: No symptoms Endocrine: Reports: No symptoms Hematologic/Lymphatic: Reports: No symptoms All Other Systems: Reviewed and Negative Past Medical History - Past Medical History Previously Healthy: No Endocrine: Reports: Unknown Cardiovascular: Reports: Unknown Respiratory: Reports: Other Hematological: Reports: Other Gastrointestinal: Reports: Unknown Genitourinary: Reports: Unknown Neuro/Psych: Reports: Unknown Musculoskeletal: Reports: Unknown Cancer: Reports: Unknown - Surgical History General Surgical History: Reports: Unknown - Family History Family History: Reports: Unknown - Social History Smoking Status: Former smoker Hx Substance Use: No Alcohol Screening: None Physical Exam - Physical Exam Appearance: Well-appearing, No pain distress, Well-nourished Pain Distress: Mild Eyes: BRANDEN ENT: Ears normal, Nose normal, Oropharynx normal Neck: Supple Respiratory: Airway patent Cardiovascular: RRR GI/: Soft Musculoskeletal: Limited ROM Skin: Warm, Dry, Normal color Neurological: Sensation intact, Motor intact, Reflexes intact, Cranial nerves intact, Alert, Oriented Psychiatric: Affect appropriate, Mood appropriate Interpretation - Radiology Interpretation Radiology Interpretation By: ED Physician Radiology Results: Negative Critical Care Note - Critical Care Note Total Time (mins): 0 Course - Course Hematology/Chemistry: 10/01/18 17:01 10/01/18 17:13 Orders, Labs, Meds: Lab Review 10/01/18 10/01/18 17:01 17:13 WBC 10.85 H RBC 4.36 L Hgb 13.9 L Hct 42.0 MCV 96.3 H MCH 31.9 H MCHC 33.1 RDW Coeff of Avnita 12.8 Plt Count 211 Immature Gran % (Auto) 0.3 Neut % (Auto) 68.0 Lymph % (Auto) 21.1 [place] % (Auto) 9.4 Eos % (Auto) 0.7 Baso % (Auto) 0.5 Immature Gran # (Auto) 0.0 Neut # (Auto) 7.4 H Lymph # (Auto) 2.3 [place] # (Auto) 1.0 Eos # (Auto) 0.1 Baso # (Auto) 0.1 ESR 4 Sodium 138.0 Potassium 4.03 Chloride 101.5 Carbon Dioxide 27.9 Anion Gap 12.63 BUN 27.1 H Creatinine 1.53 H Estimated GFR (MDRD) 44.00 BUN/Creatinine Ratio 17.71 Glucose 98.2 Uric Acid 7.37 Calcium 9.69 Orders Category Date Time Status BLOOD CULTURE (ED ONLY) Stat LAB 10/01/18 17:13 Received BMP [BASIC METABOLIC PANEL] Stat LAB 10/01/18 17:13 Completed CBC W/ AUTO DIFF Stat LAB 10/01/18 17:01 Completed ESR Stat LAB 10/01/18 17:01 Completed URIC ACID Stat LAB 10/01/18 17:13 Completed Dexamethasone 4 mg/ml Inj [Decadron 4 mg/ml Sdv] MEDS 10/01/18 17:38 Discontinued 4 mg IM ONCE STA TOE(S), RIGHT MIN 2V Stat RADS 10/01/18 17:01 Taken Medications Discontinued Medications Generic Name Dose Route Start Last Admin Trade Name Nikunj PRN Reason Stop Dose Admin Dexamethasone Sodium Phosphate 4 mg 10/01/18 17:38 10/01/18 17:44 Decadron 4 Mg/Ml Sdv IM 10/01/18 17:39 4 mg ONCE STA Administration Vital Signs: Temp Pulse Resp BP Pulse Ox 10/01/18 15:41 98.0 F 76 20 176/90 H 96 Departure - Departure Time of Disposition: 18:07 Disposition: HOME SELF-CARE Discharge Problem: Gout Qualifiers: Gout site: foot Gout etiology: unspecified cause Chronicity: acute Laterality: right Qualified Code(s): M10.9 - Gout, unspecified Instructions: Low Purine Diet (ED), Gout (ED) Condition: Good Pt referred to PMD for follow-up: Yes IPMP verified?: No Additional Instructions: medrol dose packj===f/u with dr grijalva Allergies/Adverse Reactions: Allergies No Known Allergies Allergy (Verified 10/01/18 15:45) Home Medications: Ambulatory Orders Aspirin [Aspir 81] 81 mg PO DAILY #30 tab-cap 03/13/14 Ramipril 10 mg PO DAILY #30 tab-cap 03/13/14 Simvastatin [Zocor] 20 mg PO DAILY #30 tab-cap 03/13/14 Esomeprazole Magnesium [Nexium] 40 mg PO DAILY 08/04/16 Bimatoprost Opth [Lumigan] 1 drop OP DAILY 04/14/17 Lorazepam [Ativan] 0.5 mg PO BEDTIME PRN 10/01/18 Disposition Discussed With: Patient, Family
--- NOTE | 2018-10-02 03:36 | DI ---
EXAM: Right foot, three views, 10/01/2018 HISTORY: Toe pain COMPARISON: None. FINDINGS / IMPRESSION: The visualized osseous structures appear intact. Anatomic alignment appears within normal limits. There is no evidence of fracture or dislocation. Chronic osteoarthritic degenerative change. Soft t issue swelling medial to the first metatarsal phalangeal joint. No acute osseous abnormality.
== END 2018-10-01 18:12 | disposition home or self-care (01) ==
LOC: ED 15:41
DX: M25.571 Pain in right ankle and joints of right foot (principal); L03.031 Cellulitis of right toe; M10.9 Gout, unspecified
CPT/HCPCS: 36415; 80048; 84550; 85025; 85651; 87040; 87070; 96372; 99283